=== PATIENT | female | born 1980 | race Caucasian/White ===

== ENCOUNTER 2018-09-07 14:03 | Inpatient (IN) | payer OTHER ==
[~2018-09-07] VITALS: Ht 157.5 cm; Wt 68.2 kg
[2018-09-07] MEDS ORDERED: OXYTOCIN 30U/ 0.9% NaCL 500ML 500 ML IV ONE (14:23)
[2018-09-07] MEDS ORDERED: LACTATED RINGERS 1,000 ML IV SCH (14:23)
[2018-09-07] MEDS ORDERED: PREN1TAB60 PO (14:27)
[2018-09-07] MEDS ORDERED: FENTANYL PF 100 MCG/2ML IVPush PRN (14:30)
[2018-09-07] MEDS ORDERED: SODIUM CHLORIDE FLUSH 10ML SYR IVF PRN (14:30)
[2018-09-07] MEDS ORDERED: ONDANSETRON 2MG/ML, 2ML IVPush PRN (14:30)
[2018-09-07] MEDS ORDERED: OXYTOCIN 30U/ 0.9% NaCL 500ML 500 ML ONE (15:01)
[2018-09-07] MEDS ORDERED: LIDOCAINE 1%, 20ML ONE (15:01)
[2018-09-07] MEDS ORDERED: MISOPROSTOL 200 MCG TABLET ONE (15:01)
[2018-09-07] MEDS ORDERED: NEWBORN KIT ONE (15:01)
[2018-09-07 15:07] LABS: BASOPHILS # (AUTO) 0.01 x10^3/uL (0-0.1); BASOPHILS % (AUTO) 0 % (0-1); EOSINOPHILS # (AUTO) 0.01 x10^3/uL (0-0.4); EOSINOPHILS % (AUTO) 0 % (1-7); LYMPHOCYTES % (AUTO) 9 % (22-44); MD NO; MEAN CORPUSCULAR VOLUME 97.1 fL (80-100); MEAN PLATELET VOLUME 8.6 fL (7.4-10.4); MONOCYTES # (AUTO) 0.57 x10^3/uL (0.2-0.8); MONOCYTES % (AUTO) 4 % (2-9); NEUTROPHILS # (AUTO) 14.05 x10^3/uL (1.8-6.8); NEUTROPHILS % (AUTO) 87 % (42-75); PLATELET COUNT 279 x10^3/uL (130-400); RED BLOOD COUNT 4.36 x10^6/uL (3.82-5.3); RED CELL DISTRIBUTION WIDTH 14.7 % (9.6-15.2)
[2018-09-07] MEDS ORDERED: VALA500T4 PO (15:24)
[2018-09-07] MEDS ORDERED: MISOPROSTOL 200 MCG TABLET PR PRN (20:00)
[2018-09-07] MEDS ORDERED: METHYLERGONOVINE 0.2 MG/ML IM PRN (20:00)
[2018-09-07] MEDS ORDERED: ACETAMINOPHEN 325 MG TABLET PO PRN (20:00)
[2018-09-07] MEDS ORDERED: DOCUSATE 100 MG CAPSULE PO PRN (20:00)
[2018-09-07] MEDS ORDERED: CARBOPROST TROMETHAMINE 250 MCG/ML, 1ML IM PRN (20:00)
[2018-09-07] MEDS ORDERED: ONDANSETRON 2MG/ML, 2ML IV PRN (20:00)
[2018-09-07] MEDS ORDERED: OXYcodone/APAP 5/325MG TABLET PO PRN ×2 (20:00)
[2018-09-07] MEDS ORDERED: IBUPROFEN 600 MG TABLET ONE (20:57)
[2018-09-07] MEDS: IBUPROFEN 600 MG TABLET PO PRN (21:00)
[2018-09-07 22:00] VITALS: BP 126/82
[2018-09-08 01:45] VITALS: BP 107/70
[2018-09-08] MEDS: IBUPROFEN 600 MG TABLET PO PRN ×3 (02:49→15:35)
[2018-09-08 05:45] VITALS: BP 118/72
[2018-09-08 05:45] LABS: BASOPHILS % (AUTO) 0 % (0-1); EOSINOPHILS # (AUTO) 0.28 x10^3/uL (0-0.4); EOSINOPHILS % (AUTO) 2 % (1-7); LYMPHOCYTES # (AUTO) 1.36 x10^3/uL (1-3.4); LYMPHOCYTES % (AUTO) 8 % (22-44); MD NO; MEAN CORPUSCULAR HEMOGLOBIN 33.4 pg (27.0-34.8); MEAN CORPUSCULAR HGB CONC 34.3 g/dL (32.4-35.8); MEAN CORPUSCULAR VOLUME 97.4 fL (80-100); MEAN PLATELET VOLUME 8.2 fL (7.4-10.4); MONOCYTES # (AUTO) 0.97 x10^3/uL (0.2-0.8); MONOCYTES % (AUTO) 6 % (2-9); NEUTROPHILS # (AUTO) 14.27 x10^3/uL (1.8-6.8); NEUTROPHILS % (AUTO) 85 % (42-75); PLATELET COUNT 232 x10^3/uL (130-400)
[2018-09-08 08:45] VITALS: BP 107/69
[2018-09-08] MEDS ORDERED: PRENATAL VIT/IRON/FA 1 EACH TABLET PO SCH (09:00)
[2018-09-08] MEDS ORDERED: DOCU-131 PO (12:47)
[2018-09-08] MEDS ORDERED: IBUP-1222 PO (12:48)
[2018-09-08 15:54] VITALS: BP 98/66
== END 2018-09-08 17:35 | disposition home or self-care (01) | DRG 807 ==
LOC: LDOP 14:03 → LDIP 14:23 → 2NW 21:55
PROVIDERS: ADMIT Obstetrics & Gynecology Maternal & Fetal Medicine; ATTEND Obstetrics & Gynecology Maternal & Fetal Medicine
PROC: 10E0XZZ Delivery of Products of Conception, External Approach (ICD-10-PCS; principal; 2018-09-07)
PROC: 0KQM0ZZ Repair Perineum Muscle, Open Approach (ICD-10-PCS; 2018-09-07)
DX: O48.0 Post-term pregnancy (principal); Z37.0 Single live birth; O70.1 Second degree perineal laceration during delivery; O77.0 Labor and delivery complicated by meconium in amniotic fluid; Z3A.41 41 weeks gestation of pregnancy
CPT/HCPCS: 36415; 85025; 86850; 86900; G0378